=== PATIENT | male | born 1945 | race Hispanic/Latino ===

== ENCOUNTER 2017-11-16 14:33 | Inpatient (IN) | payer MEDICARE ==
[~2017-11-16] VITALS: Ht 157.5 cm; Wt 122.0 kg
[2017-11-16 15:30] LABS: BASOPHILS % 0.4 % (0.0-1.0); EOSINOPHILS % 0.7 % (0.0-6.0); HEMATOCRIT 27.6 % (38.2-49.6); HEMOGLOBIN 9.1 g/dL (14.0-18.0); LYMPHOCYTES # (AUTO) 0.6 (1.0-3.2); LYMPHOCYTES % 22.2 % (18.0-39.1); MEAN CORPUSCULAR VOLUME 97.2 fL (81-99); MONOCYTES # (AUTO) 0.2 (0.2-0.8); MONOCYTES % 8.7 % (4.4-11.3); NEUTROPHILS # (AUTO) 1.9 (2.1-6.9); NEUTROPHILS % 67.6 % (38.7-80.0); PLATELET COUNT 114 x10e3/uL (140-360); RED BLOOD COUNT 2.84 x10e6/uL (4.3-5.7); RED CELL DISTRIBUTION WIDTH 14.9 % (11.7-14.4)
[2017-11-16] MEDS ORDERED: ASPIRIN 81 MG CHEW TAB PO ONE ×2 (15:30→18:30)
[2017-11-16 15:37] LABS: INR 1.17
[2017-11-16 15:38] LABS: PARTIAL THROMBOPLASTIN TIME 26.4 seconds (23.8-35.5)
[2017-11-16 15:48] LABS: ALBUMIN 3.7 g/dL (3.5-5.0); ALBUMIN/GLOBULIN RATIO 1.2 (0.8-2.0); ANION GAP 16.6 mmol/L (8-16); CALCIUM 9.3 mg/dL (8.4-10.2); CREATININE, SERUM 2.83 mg/dL (0.72-1.25); POTASSIUM 3.6 mmol/L (3.5-5.1)
[2017-11-16 15:54] LABS: CREATINE KINASE MB 1.4 ng/mL (0-5.0)
--- NOTE | 2017-11-16 16:51 | Diagnostic Imaging Report ---
History:Shortness of breath, dizziness Comparison studies:None Technique: Axial images were obtained from the skull base to the vertex. Coronal and sagittal images reconstructed from the axial data. Intravenous contrast: None Findings: Scalp/skull: Previous suboccipital craniotomy perhaps to decompress a Chiari 1 malformation Extra-axial spaces: No masses. No fluid collections. Brain sulci: Mildly prominent. Ventricles: Mild compensatory dilatation. No hydrocephalus. Parenchyma: Old lacunar insults are centered in the left subinsular region. No masses, hemorrhage, acute or chronic cortical vascular insults. Sellar/suprasellar region: No abnormalities. Craniocervical junction: Patent foramen magnum. No Chiari one malformation. Incidental findings: * Atherosclerotic calcifications in the carotid siphons and vertebral arteries. * Left phthisis bulbi. Right lens prosthesis Impression: No acute abnormalities. Chronic findings: 1. Midline occipital craniectomy 2. Old lacunar insult in the left subinsular region. 3. Left sided phthisis bulbi with postoperative changes from scleral banding. Preliminary report provided by Dr. Jorje Cheema Signed by: Dr. Matt Kasper M.D. on 11/16/2017 8:22 PM
--- NOTE | 2017-11-16 16:58 | Diagnostic Imaging Report ---
PROCEDURE: A single AP view of the chest. COMPARISON: None. INDICATIONS: LEFT SIDE WEAKNESS, SHORTNESS OF BREATH FINDINGS: Lines/tubes: None. Lungs: Limited by body habitus and low lung volumes. No definite focal consolidation. Central vascular congestion. Right mid to lower lung field nodular density is probably a calcified granuloma. Pleura: There is no significant pleural effusion or pneumothorax. Heart and mediastinum: The cardiac silhouette is enlarged. Median sternotomy wires. Aorta is calcified. Bones: No acute bony abnormality. IMPRESSION: Limited as above. Central vascular congestion. No definite focal consolidation. Dictated by: Kishan Nevarez M.D. on 11/16/2017 at 17:01 Electronically approved by: Kishan Nevarez M.D. on 11/16/2017 at 17:01
[2017-11-16] MEDS ORDERED: MORPHINE SULFATE 2 MG/ML SYR IV PRN (18:30)
[2017-11-16] MEDS ORDERED: ONDANSETRON HCL INJ 2 MG/ML VIAL IV PRN (18:30)
[2017-11-16] MEDS ORDERED: ARICEPT5 MG PO (21:15)
[2017-11-16] MEDS ORDERED: CARVEDILOL12.5 MG PO (21:15)
[2017-11-16] MEDS ORDERED: BUMETANIDE1 MG PO (21:15)
[2017-11-16] MEDS ORDERED: HYDRALAZINE HCL25 MG PO (21:15)
[2017-11-16] MEDS ORDERED: METOPROLOL TART50 MG PO (21:15)
[2017-11-16] MEDS ORDERED: LOVASTATIN40 MG PO (21:15)
[2017-11-16] MEDS ORDERED: METOLAZONE5 MG PO (21:15)
[2017-11-16] MEDS ORDERED: LISINOPRIL10 MG PO (21:15)
[2017-11-16] MEDS ORDERED: SERTRALINE HCL100 MG PO (21:15)
[2017-11-16] MEDS ORDERED: PLAVIX75 MG PO (21:15)
[2017-11-16] MEDS ORDERED: TRICOR145 MG PO (21:15)
[2017-11-16] MEDS ORDERED: MELOXICAM7.5 MG PO (21:15)
[2017-11-16] MEDS ORDERED: HUMALOG100 UNIT/1 SC (21:15)
[2017-11-16] MEDS ORDERED: AMLODIPINE BESYL5 MG PO (21:15)
[2017-11-16] MEDS ORDERED: QUETIAPINE FUMARATE 100 MG TAB PO ONE (22:45)
[2017-11-16] MEDS ORDERED: SIMVASTATIN 20 MG TAB PO ONE (22:45)
[2017-11-16] MEDS ORDERED: DONEPEZIL HCL 5 MG TAB PO ONE (22:45)
[2017-11-16] MEDS ORDERED: METOPROLOL TARTRATE 50 MG TAB PO ONE (22:45)
[2017-11-16] MEDS ORDERED: HYDRALAZINE HCL 25 MG TAB PO ONE (22:45)
[2017-11-16] MEDS ORDERED: SERTRALINE HCL 100 MG TAB PO ONE (23:15)
[2017-11-16 23:28] VITALS: BP 142/65
[2017-11-17] VITALS (8 sets, daily range): BP systolic 120–159; BP diastolic 55–68
[2017-11-17 00:11] LABS: CREATINE KINASE MB 1.3 ng/mL (0-5.0)
[2017-11-17] MEDS ORDERED: TOUJEO SC (04:10)
[2017-11-17 07:35] LABS: BILIRUBIN,URINE NEGATIVE (NEGATIVE); CLARITY,URINE CLEAR (CLEAR); COLOR,URINE YELLOW (YELLOW); KETONES,URINE NEGATIVE (NEGATIVE); LEUKOCYTE ESTERASE ,URINE NEGATIVE (NEGATIVE); NITRITE,URINE NEGATIVE (NEGATIVE); PROTEIN,URINE DIPSTICK NEGATIVE (NEGATIVE); URINE UROBILINOGEN 0.2 mg/dL (0.2 - 1)
[2017-11-17 08:06] LABS: EPITHELIAL CELLS,URINE RARE /LPF
[2017-11-17 08:13] LABS: BASOPHILS % 0.4 % (0.0-1.0); EOSINOPHILS % 0.8 % (0.0-6.0); HEMATOCRIT 27.7 % (38.2-49.6); HEMOGLOBIN 8.9 g/dL (14.0-18.0); LYMPHOCYTES # (AUTO) 0.8 (1.0-3.2); LYMPHOCYTES % 34.4 % (18.0-39.1); MEAN CORPUSCULAR HEMOGLOBIN 31.6 pg (28-32); MEAN CORPUSCULAR HGB CONC 32.1 g/dL (31-35); MEAN CORPUSCULAR VOLUME 98.2 fL (81-99); MONOCYTES # (AUTO) 0.3 (0.2-0.8); MONOCYTES % 13.1 % (4.4-11.3); NEUTROPHILS # (AUTO) 1.2 (2.1-6.9); NEUTROPHILS % 50.1 % (38.7-80.0); PLATELET COUNT 127 x10e3/uL (140-360); RED BLOOD COUNT 2.82 x10e6/uL (4.3-5.7); RED CELL DISTRIBUTION WIDTH 14.8 % (11.7-14.4)
[2017-11-17 08:29] LABS: ALBUMIN 3.5 g/dL (3.5-5.0); ALBUMIN/GLOBULIN RATIO 1.3 (0.8-2.0); ANION GAP 16.6 mmol/L (8-16); CALCIUM 9.1 mg/dL (8.4-10.2); CREATININE, SERUM 2.33 mg/dL (0.72-1.25); POTASSIUM 3.6 mmol/L (3.5-5.1)
[2017-11-17] MEDS ORDERED: DEXTROSE 50% SYRINGE 50 ML IV PRN (08:30)
[2017-11-17] MEDS ORDERED: ASPIRIN 81 MG ENTERIC COATED PO SCH (09:00)
[2017-11-17] MEDS: HYDRALAZINE HCL 25 MG TAB PO SCH ×3 (09:02→20:59)
[2017-11-17] MEDS: CARVEDILOL 12.5 MG TAB PO SCH ×2 (09:02→16:15)
[2017-11-17] MEDS: AMLODIPINE BESYLATE 5 MG TAB PO SCH ×2 (09:03→16:15)
[2017-11-17] MEDS: FENOFIBRATE 145 MG TAB PO SCH (09:03)
[2017-11-17] MEDS: SERTRALINE HCL 100 MG TAB PO SCH ×2 (09:03→16:15)
[2017-11-17] MEDS: CLOPIDOGREL BISULFATE 75 MG TAB PO SCH (09:03)
[2017-11-17] MEDS: HEPARIN SOD (PORCINE) 5,000 UNIT/ML VIAL SC SCH ×2 (09:03→20:59)
--- NOTE | 2017-11-17 09:20 | History and Physical ---
PCP: Dr. Bhupendra Loera CHIEF COMPLAINT: The patient is having increasing shortness of breath for the last few days associated with confusion and episode of left side of face drooping about 2-3 days back. HISTORY OF PRESENT ILLNESS: The patient is a poor historian. History with the help of daughter on phone. A 72-year-old pleasant male with a past medical history of multiple medical problems was admitted at [facility] with the above complaints. As per daughter, since last few days to a couple of weeks the patient is complaining of more short of breath than normal. Also, the patient was more confused. As per daughter, about 2-3 days back there was an episode of what felt like left side of his face was drooping for some time. Hence, due to all of this, the patient was brought in the ER last evening. In the emergency room, the patient was seen by the emergency room doctor, and was admitted for further care and treatment. At present, the patient laying comfortably in bed in no apparent distress. No chest pain. No nausea or diarrhea. No abdominal pain. No loss of consciousness or palpitations. No headaches. No hematemesis. No melena. No hematuria. No dysuria. No fever. No cough. No witnessed seizures. PAST MEDICAL HISTORY 1. CAD, status post CABG 20 years back. 2. Diabetes mellitus, type 2, insulin-dependent. 3. CHF. 4. Chronic renal insufficiency. 5. Morbid obesity. 6. Hypertension. 7. Dyslipidemia. 8. Left eye blindness. 9. Dementia. MEDICATIONS: As listed in chart. SURGICAL HISTORY: CABG 20 years back, C-spine surgery 7-8 years back, left eye surgery 6 years back. SOCIAL HISTORY: Ex-smoker. No alcohol. No illicit drug use. Lives with daughter. recently 1 week back. FAMILY HISTORY: Noncontributory. REVIEW OF SYSTEMS: As per HPI. PHYSICAL EXAMINATION GENERAL: The patient is alert and oriented times 3 and in no apparent distress. Lying in bed. VITALS: Temperature is 97, pulse 70 per minute, respirations 20 per minute, blood pressure 159/70, and saturation is 97% on room air. HEENT: No signs of icterus. No pallor. Normocephalic and atraumatic. PERRLA. NECK: Short and supple. No JVD or bruits. LUNGS: Air entry bilaterally equal. Bibasilar breath sounds. HEART: S1 and S2. No murmur or gallop. ABDOMEN: Soft and nontender. Bowel sounds present. SUPERVISOR MIRROR FABRICATION: Alert, awake and obeys all commands. Moves extremities. LABS: On admission, white count 2.7, hemoglobin 9, hematocrit 27.6, and platelets 114,000. Sodium 138, potassium 3.6, chloride 96, bicarb 29, BUN 59, creatinine 2.83, glucose 195. LFTs within normal limits. Cardiac enzymes times 3 negative. PT 49, INR 1.17 and PTT 26.4. Urine with no infection. Chest x-ray shows central venous congestion. No definite focal consolidation. CT of brain shows midline occipital craniectomy. Old lacunar insult in the left subinsular region. Left-sided followed by report of scleral banding. EKG shows sinus rhythm with first-degree AV block. ST-T changes in the inferolateral leads. ASSESSMENT 1. Dyspnea. 2. Episode of confusion, left-sided facial droop. Dyspnea could be CHF exacerbation. Will check BMP, echo. Cardiology consultation with Dr. Skelton. Will get carotid Dopplers. Neurology consultation with Dr. Heather Reeves. Renal consultation with Dr. Sagastume. Serial lytes. Continue home medications. Hold lisinopril. Hold meloxicam. Further care and treatment while the patient is in the hospital. Discussed with the patient and daughter in detail. Prognosis is guarded. Job#: [id number] [place]
[2017-11-17] MEDS: INSULIN LISPRO 100 UNIT/1 ML 3ML VIAL SQ SCH ×3 (11:32→21:01)
[2017-11-17 14:57] LABS: CREATINE KINASE MB 1.1 ng/mL (0-5.0)
[2017-11-17 15:24] LABS: CREATININE,URINE RANDOM 118.4 mg/dL (63-166); TOTAL PROTEIN, URINE 17.1 mg/dL (1-14)
--- NOTE | 2017-11-17 15:42 | Diagnostic Imaging Report ---
EXAM: Renal Ultrasound INDICATION: \S\RENAL FAILURE \[id number] \S\[id number] COMPARISON: None TECHNIQUE: Transverse and longitudinal images of the kidneys and bladder were obtained. FINDINGS: Right Kidney: Size: 10.9 cm Echogenicity: Normal Parenchymal thickness: Normal Collecting system: No hydronephrosis Stones: None Cyst/Mass: 1.9 x 1.4 x 1.5 cm inferior medial right renal cyst. Left Kidney: Size: 11.6 cm Echogenicity: Normal Parenchymal thickness: Normal Collecting system: No hydronephrosis Stones: None Cyst/Mass: None Bladder: Unremarkable. IMPRESSION: Unremarkable renal ultrasound exam. Signed by: Dr. Kishan Nevarez MD on 11/17/2017 3:38 PM
--- NOTE | 2017-11-17 15:43 | Consultation ---
DATE OF CONSULTATION: November 17, 2017 A 72-year-old gentleman who is a very poor historian. Renal consult for management of kidney failure. Patient was admitted with apparent shortness of breath. He denies any nausea, vomiting or shortness of breath at this point in time and laying supine in bed. Again, a very poor historian. Follows commands to some extent. States he does not know why he is here in the hospital. Has underlying history of dementia, left eye surgery, history of increased BMI, congestive heart failure, CKD, diabetes, coronary artery disease with apparently a history of C-spine surgery and possible craniotomy. He had coronary artery bypass surgery many years ago. SOCIAL HISTORY: Does not smoke or drink. FAMILY HISTORY: Please see primary care physician's note for details. LABORATORY TESTS: Sodium 139, potassium 3.6, bicarbonate 28, creatinine 2.33. Hemoglobin 8.9. AST 17, ALT 11, total bilirubin 0.4. He is currently on aspirin, carvedilol, fenofibrate, insulin, Plavix, hydralazine, amlodipine, dextrose p.r.n., sertraline 100 mg p.o. b.i.d., 10 mg at bedtime and insulin. For dose schedule, please see MAR. PHYSICAL EXAMINATION GENERAL: Awake, alert and laying supine. No apparent distress. VITALS: Blood pressure 135/63, pulse rate 80, afebrile, oxygen saturation 95% on room air. HEAD AND NECK: No icterus noted. Oral mucosa difficult to examine but moist. Neck veins not distended. LUNGS: Decreased air entry in bases, but no rales. HEART: S1 and S2 audible. ABDOMEN: Obese, soft and nontender. Flanks full. LOWER EXTREMITY: Trace ankle edema. IMPRESSION AND PLAN 1. Underlying [id number] kidney failure. 2. Underlying chronic kidney disease, 3. 3. Diabetes with underlying multiple comorbidities: Will obtain kidney ultrasound. Spot urine protein and creatinine ratio. No overt sign of congestive heart failure. 4. Anemia of chronic kidney disease. Blood pressure appears stable. Echocardiogram done and results pending. Seen by neurology. Job#: [id number] [place]
[2017-11-17 16:31] LABS: CHOL/HDL RATIO 5.2 (3.9-4.7); CHOLESTEROL 162 MD/DL (0-199); HDL CHOLESTEROL 31 MG/DL (40-60); TRIGLYCERIDES 403 MG/DL (0-149)
--- NOTE | 2017-11-17 16:48 | Consultation ---
DATE OF CONSULTATION: November 17, 2017 CARDIOLOGY CONSULTATION REQUESTING PHYSICIAN: Dr. Haim Callaway. REASON FOR CONSULTATION: Chest pain. HISTORY OF PRESENT ILLNESS: This is a 72-year-old man with coronary artery disease status post 4-vessel CABG 20 years ago, congestive heart failure, diabetes mellitus, hypertension, hyperlipidemia, and chronic kidney disease, who presented with complaints of shortness of breath. The patient is a poor historian. He states he has chronic shortness of breath but he has apparently been more short of breath in the last few weeks. Per EMR, the daughter indicated the patient was more confused as well as had development of a left-sided facial droop 2 to 3 days prior to presentation. The patient was therefore brought to the ER for further evaluation. The patient denies any chest pain, palpitations, orthopnea or PND. He does endorse chronic lower extremity edema that has been ongoing for several months. REVIEW OF SYSTEMS: Negative except as per HPI. PAST MEDICAL HISTORY 1. Coronary artery disease, status post 4-vessel CABG 20 years ago. 2. Congestive heart failure. 3. Diabetes mellitus. 4. Hypertension. 5. Hyperlipidemia. 6. Chronic kidney disease. 7. Left eye blindness. 8. Dementia. PAST SURGICAL HISTORY 1. CABG. 2. C-spine surgery. 3. Left eye surgery. ALLERGIES: PLEASE SEE EMR. MEDICATIONS: Please see medication list. SOCIAL HISTORY: Prior tobacco, no alcohol or drugs. FAMILY HISTORY: Noncontributory. PHYSICAL EXAMINATION VITAL SIGNS: Temperature 96.5 degrees, pulse 80, respiratory rate 18, blood pressure 135/63, oxygen saturation 95% on room air. GENERAL: A well developed, well-nourished man in no acute distress. HEENT: Normocephalic, atraumatic. Left eye blind. NECK: Supple. No thyromegaly or cervical lymphadenopathy, no carotid bruits. LUNGS: Clear to auscultation bilaterally. No wheezes or crackles. CARDIOVASCULAR: Normal rate, regular rhythm. No murmur. Normal S1 and S2. ABDOMEN: Soft, nontender. EXTREMITIES: 1+ pitting edema. NEURO: Nonfocal exam. LABS: WBC 2.44, hemoglobin 8.9, hematocrit 27.7, platelets 127. Sodium 139, potassium 3.6, chloride 98, CO2 28, BUN 61, creatinine 2.33. Troponin 0.018. EKG: Sinus rhythm with 1st-degree AV block, ST-T wave abnormality, consider inferior ischemia. ST-T wave abnormality, consider anterolateral ischemia. CHEST X-RAY: Central vascular congestion. No definite focal consolidation. CT BRAIN: Mild occipital craniectomy, old lacunar insult in the left subinsular region, left-sided phthisis bulbi with postoperative changes from scleral banding. CAROTID DOPPLERS: With elevated velocities in the right internal carotid which are suggestive of 50% to 69% focal stenosis. IMPRESSION 1. Dyspnea, suspect [id number] diastolic heart failure. 2. Left-sided facial droop. 3. Carotid artery stenosis. 4. Coronary artery disease, status post 4-vessel coronary artery bypass graft. 5. Hypertension. 6. Diabetes mellitus. 7. Chronic kidney disease. RECOMMENDATIONS: Gentle diuretics given patient's elevated creatinine. Unclear if this is his baseline. The patient is a poor historian. He indicates it has been several years since he has last had cardiac care. We will confirm with the family. If he has not had recent ischemic evaluation, he will need to have this arranged as an outpatient. Continue current cardiac medications otherwise. Further evaluation of left-sided facial weakness per Neurology. If acute CVA is confirmed, we will need to allow permissive hypertension. Therefore, would not adjust his antihypertensive therapies at this time. Thank you for this consult. We will continue to follow. Job#: [id number] [place]
[2017-11-17] MEDS: FUROSEMIDE INJ 10 MG/ML 4 ML VIAL IV SCH (16:52)
[2017-11-17] MEDS: FAMOTIDINE 20 MG TAB PO SCH (16:53)
--- NOTE | 2017-11-17 17:33 | Consultation ---
DATE OF CONSULTATION: November 17, 2017 NEUROLOGY CONSULT HISTORY OF PRESENT ILLNESS: Mr. Mcclendon is a 72-year-old right-hand dominant man with a past medical history significant for hypertension, hyperlipidemia, diabetes mellitus, coronary artery disease, and peripheral vascular disease, who presented to the emergency center at [facility] on the evening of November 17, 2017, with multiple symptoms. Mr. Mcclendon reports not feeling well for the past few weeks. He reports fatigue, generalized weakness, rhinorrhea, and a productive cough. Two days prior to admission, the patient experienced the sudden onset of dysarthria, expressive aphasia, and a left facial droop. The patient reports generalized weakness without one side being more affected than the other. He does not endorse numbness, dizziness, or confusion. He does report poor balance and gait impairment, which he attributed to his generalized weakness. The slurred speech, expressive aphasia, and left facial droop lasted for a few hours, then spontaneously resolved. On the day of admission, the patient developed chest pain and shortness of breath, prompting his family to bring him to the emergency center at [facility] for further evaluation. Upon admission to the emergency center, the patient was afebrile with a blood pressure of 114/70 mmHg and pulse of 69 beats per minute. The patient's neurological examination is documented as follows: Oriented times 3. No motor deficits. No sensory deficits. While in the emergency center, a CT of the brain without contrast was performed. There was no evidence of recent large territorial ischemia or hemorrhage. Mr. Mcclendon was admitted to [facility] for further evaluation and treatment of his symptoms. Patient reports experiencing similar symptoms previously, "off and on." He reports having a mild headache associated with the above symptoms. He does not endorse photophobia, phonophobia, nausea, or vomiting associated with the headache. Mr. Mcclendon takes Plavix 75 mg by mouth daily. He endorses compliance with his medication list. REVIEW OF SYSTEMS: Chest pain, shortness of breath, productive cough, nasal congestion, dysarthria, aphasia, left facial droop, generalized weakness, headache, fatigue. Otherwise, a 12-point review of systems is negative. PAST MEDICAL HISTORY: Hypertension, hyperlipidemia, diabetes mellitus, coronary artery disease, asthma, emphysema, chronic kidney disease, stage unknown, peripheral vascular disease. PAST SURGICAL HISTORY: Four-vessel CABG, cervical spine surgery, double inguinal hernia repair, stents placement in peripheral blood vessels. PAST HOSPITALIZATIONS: Surgeries and procedures as listed. FAMILY HISTORY: The patient's paternal and maternal grandparents are . Their medical histories are unknown. The patient's father and mother are both from complications of diabetes. Mr. Mcclendon had 4 brothers and 5 sisters. His youngest brother and eldest and youngest sisters are alive. One brother and 1 sister were killed in a motor vehicle accidents. One sister from an unknown cancer. One brother from liver disease secondary to alcohol abuse. The patient had 5 sons and 3 daughters. Two sons and 3 daughters are alive. One son in infancy. One son as a result of a motor vehicle accident. One son from complications of diabetes mellitus and end-stage renal disease. SOCIAL HISTORY: Mr. Mcclendon is a . He is retired. The patient reports remote tobacco and alcohol use. He quit smoking cigarettes and drinking alcohol approximately 35 years ago. Mr. Mcclendon does not endorse current or prior recreational drug use. HOME MEDICATIONS: 1. Norvasc 5 mg by mouth twice daily. 2. Bumetanide 1 mg by mouth twice daily. 3. Coreg 25 mg by mouth daily. 4. Plavix 75 mg by mouth daily. 5. Aricept 10 mg by mouth at bedtime daily. 6. TriCor 145 mg by mouth daily. 7. Hydralazine 25 mg by mouth three times daily. 8. Humalog 5 units subcutaneously before meals. 9. Lisinopril 20 mg by mouth twice daily. 10. Lovastatin 40 mg by mouth at bedtime daily. 11. Meloxicam 7.5 mg by mouth daily. 12. Metolazone 5 mg by mouth twice daily. 13. Metoprolol 50 mg by mouth twice daily. 14. Sertraline 100 mg by mouth twice daily. 15. Toujeo 40 units subcutaneously at bedtime daily. ALLERGIES: MR. MCCLENDON REPORTS NO KNOWN DRUG ALLERGIES. HOWEVER, AN ALLERGY TO ACETAMINOPHEN IS LISTED IN HIS ELECTRONIC MEDICAL RECORD. NO KNOWN FOOD ALLERGIES. NO KNOWN ALLERGIES TO LATEX. NO KNOWN ALLERGIES TO IODINE OR OTHER CONTRAST MATERIALS. PHYSICAL EXAMINATION VITAL SIGNS: Height 67 inches, weight 270 pounds, BMI 42.3 kg per meter squared. Blood pressure 135/63 mmHg, pulse 80 beats per minute, respiratory rate 18 breaths per minute, oxygen saturation 95% on room air. GENERAL: Patient is awake and alert, does not appear distressed. Morbidly obese. HEENT: Normocephalic and atraumatic. The left pupil is opacified. The right pupil is equal, round and reactive to light. Moist mucous membranes. NECK: Supple. No appreciable thyromegaly. No appreciable carotid bruits. CARDIOVASCULAR: S1 and S2. Regular rate and rhythm. No murmurs, rubs or gallops. RESPIRATORY: Clear to auscultation bilaterally. No wheezes, rhonchi, or rales. EXTREMITIES: The skin is warm and dry. No clubbing, or cyanosis. Positive 1+ pretibial pitting edema. The posterior tibial and dorsalis pedis pulses are trace and symmetric. SKIN: Ecchymoses over the hands and forearms. NEUROLOGIC MEMORY/ATTENTION: The patient is awake and alert, oriented to person, place, time, and situation. CRANIAL NERVES: Cranial nerve I: Not tested. Cranial nerve II, III, IV, and : The left pupil is opacified. The right pupil is equal and round. Reacts briskly to light (from 4 mm to 2 mm). Extraocular movements intact. No nystagmus. Ptosis of the left eye lid. Cranial nerve V: Sensation to light touch and pinprick is intact in the bilateral V1 through V3 distributions. Strength of the temporalis and masseter muscles is within normal limits. Cranial nerve VII: Some flattening of the left nasal labial fold. Facial movements are symmetric. Strength is within normal limits. Cranial nerve VIII: Hearing is intact to finger rub bilaterally. Cranial nerve IX, X: The soft palate elevates equally and symmetrically. Cranial nerve XI: Normal strength of the bilateral sternocleidomastoid and trapezius muscles. Cranial nerve XII: The tongue protrudes midline and moves symmetrically from side to side. STRENGTH: Bulk is normal. The patient maintains both arms against gravity for more than 10 seconds each without drift. The patient maintains both legs against gravity for more than 5 seconds each without drift. Tone is normal. DEEP TENDON REFLEXES: Deep tendon reflexes are 1+ and symmetric at the triceps, biceps, brachioradialis, and patellas. Deep tendon reflexes are absent and symmetric at the Achilles. Plantar responses are flexor bilaterally. SENSATION: Is intact to light touch and pinprick in both arms and both legs. CEREBELLAR: Ziuzgc-vxag-ufdteq and heel-gonzalez movements are intact without dysmetria or other impairment. GAIT: Deferred. SPEECH: Spontaneous speech is mildly dysarthric without appreciable aphasia. Repetition is intact. INVOLUNTARY MOVEMENTS: None. PRONATOR DRIFT: None. LABORATORY DATA: Sodium 139, potassium 3.6, chloride 98, carbon dioxide 28, anion gap 16.6, BUN 61, creatinine 2.33. Estimated GFR 28. BUN to creatinine ratio 26. Glucose 170. Calcium 9.1. Total bilirubin 0.4, AST 17, ALT 11, alkaline phosphatase 40, total protein 6.2, albumin 3.5, globulin 2.7. Albumin to globulin ratio is 1.3. Creatinine kinase is 88, 74, 76, 85. CK-MB 1.4, 1.3, 1, 1.1. Troponin I 0.036, 0.024, 0.024, 0.18. B-natriuretic peptide 184.9. CBC with differential and platelets reveals a white blood cell count of 2.44 with 50.1% neutrophils, 34.4% lymphocytes, 13.1% monocytes, 0.8% eosinophils, and 0.4% basophils. The hemoglobin and hematocrit are 8.9 and 27.7 respectively. The platelet count is 127,000. PT 14, INR 1.17 and PTT 26.4. A urinalysis is unremarkable. DIAGNOSTIC STUDIES: Chest x-ray on November 16, 2017, limited by body habitus and low lung volumes. Central vascular congestion. No definite focal consolidation. CT of the brain without contrast on November 16, 2017, on my review, there is no evidence of recent large territorial ischemia, hemorrhage, mass, or mass effect. There is evidence of a prior midline occipital craniectomy. There is a remote lacunar infarct in the left subinsular region. Electrocardiogram on November 16, 2017, sinus rhythm with 1st-degree AV block at 69 beats per minute. Echocardiogram on November 17, 2017, ejection fraction 50% to 55%. Concentric left ventricular hypertrophy. Left ventricular enlargement. Left atrial enlargement. Mild mitral regurgitation. Bilateral carotid artery ultrasound with Doppler: Atherosclerosis without hemodynamically significant stenosis at the bilateral bulbs, bifurcations, internal carotid arteries, and external carotid arteries. Renal ultrasound on November 17, 2017, unremarkable renal ultrasound exam. ASSESSMENT AND PLAN: Mr. Mcclendon is a 72-year-old right-hand dominant man with multiple vascular risk factors admitted to [facility] with a probable transient ischemic attack in the right middle cerebral artery distribution. At present, the patient's neurological examination is nonfocal. His laboratory data and other diagnostic studies have been reviewed and are documented above. RECOMMENDATIONS 1. Lipid panel and hemoglobin A1c. 2. MRI of the brain without contrast is recommended for further evaluation. However, this study is declined by the patient. 3. Continue Plavix 75 mg by mouth daily for stroke prophylaxis. Discontinue aspirin therapy. Dual antiplatelets place the patient at a higher risk for bleeding events. 4. Normalize blood pressure. The patient's blood pressure goal is less than 140/90 mmHg. 5. Follow up the lipid panel. Continue treatment with lovastatin 40 mg by mouth at bedtime daily in the interim. 6. Followup the hemoglobin A1c. Tight glycemic control is recommended while the patient is in the hospital. 7. Speech and physical therapy consultations will be ordered. 8. GI prophylaxis with Pepcid 20 mg by mouth twice daily before meals. DVT prophylaxis with heparin 5000 units subcutaneously every 12 hours as per the primary service. 9. Defer treatment of the remaining medical comorbidities to the primary and other services following the patient. Thank you for this consultation. I will continue to follow this patient while he remains in the hospital. Time spent 50 minutes. Job#: [id number] [place] WALKER
[2017-11-17] MEDS: DONEPEZIL HCL 5 MG TAB PO SCH (20:59)
[2017-11-17] MEDS: SIMVASTATIN 40 MG TAB PO SCH (20:59)
[2017-11-17] MEDS ORDERED: INSULIN DETEMIR 100 UNIT/ML PEN SQ SCH (21:00)
[2017-11-18] VITALS (7 sets, daily range): BP systolic 122–147; BP diastolic 58–68
[2017-11-18 06:58] LABS: ALBUMIN 3.9 g/dL (3.5-5.0); ALBUMIN/GLOBULIN RATIO 1.3 (0.8-2.0); ANION GAP 15.8 mmol/L (8-16); CALCIUM 9.5 mg/dL (8.4-10.2); CREATININE, SERUM 2.05 mg/dL (0.72-1.25); POTASSIUM 3.8 mmol/L (3.5-5.1)
[2017-11-18] MEDS: AMLODIPINE BESYLATE 5 MG TAB PO SCH ×2 (08:22→16:28)
[2017-11-18] MEDS: HEPARIN SOD (PORCINE) 5,000 UNIT/ML VIAL SC SCH ×2 (08:22→21:26)
[2017-11-18] MEDS: CARVEDILOL 12.5 MG TAB PO SCH ×2 (08:22→16:28)
[2017-11-18] MEDS: CLOPIDOGREL BISULFATE 75 MG TAB PO SCH (08:22)
[2017-11-18] MEDS: HYDRALAZINE HCL 25 MG TAB PO SCH ×3 (08:22→21:00)
[2017-11-18] MEDS: SERTRALINE HCL 100 MG TAB PO SCH ×2 (08:22→16:28)
[2017-11-18] MEDS: FUROSEMIDE INJ 10 MG/ML 4 ML VIAL IV SCH (08:22)
[2017-11-18] MEDS: FENOFIBRATE 145 MG TAB PO SCH (08:22)
[2017-11-18] MEDS: FAMOTIDINE 20 MG TAB PO SCH ×2 (08:22→16:27)
[2017-11-18] MEDS: INSULIN LISPRO 100 UNIT/1 ML 3ML VIAL SQ SCH ×5 (08:23→21:10)
[2017-11-18] MEDS ORDERED: FUROSEMIDE INJ 10 MG/ML 2 ML VIAL IV SCH (09:00)
--- NOTE | 2017-11-18 12:13 | Progress Note ---
DATE: November 18, 2017 CARDIOLOGY PROGRESS NOTE SUBJECTIVE: Patient denies chest pain. He reports his shortness of breath is better. His daughter was at bedside today who was able to state that the patient's outpatient grape cutter is Dr. David, who he last saw approximately 1 year prior. OBJECTIVE VITAL SIGNS: Temperature 97.7 degrees, pulse 79, respiratory rate 19, blood pressure 136/62, oxygen saturation 96% on room air. GENERAL: Awake, alert, in no acute distress. LUNGS: Clear to auscultation bilaterally. No wheezes or crackles. CARDIOVASCULAR: Normal rate, regular rhythm. No murmur. Normal S1 and S2. ABDOMEN: Soft, nontender. EXTREMITIES: There is 1+ pitting edema. CARDIAC MEDICATIONS 1. Furosemide 40 mg IV daily. 2. Hydralazine 25 mg p.o. t.i.d. 3. Fenofibrate 145 mg p.o. daily. 4. Plavix 75 mg p.o. daily. 5. Carvedilol 12.5 mg p.o. b.i.d. 6. Amlodipine 5 mg p.o. b.i.d. 7. Simvastatin 40 mg p.o. nightly. TELEMETRY: Normal sinus rhythm. IMPRESSION 1. Sgxfv-du-dhduujf diastolic heart failure. 2. Transient ischemic attack. 3. Carotid artery stenosis. 4. Coronary artery disease, status post 4-vessel coronary artery bypass graft. 5. Hypertension. 6. Diabetes mellitus. 7. Chronic kidney disease. RECOMMENDATIONS: Start gentle diuretics given the patient's complaint of dyspnea and elevated BNP. The patient's daughter indicates his last stress test was approximately 1 year ago. As the patient's grape cutter is Dr. David, we will transfer care to him. In the meantime, continue current cardiac medications. The patient's blood pressure is acceptable for age. We will make no changes at this time. Patient does need evaluation of his carotid artery disease. However, we are currently limited by his renal function. We will monitor creatinine. Thank you for this consult. We will continue to follow. Job#: [id number]
--- NOTE | 2017-11-18 14:35 | Consultation ---
DATE OF CONSULTATION: November 18, 2017 ENDOCRINE CONSULTATION This is a patient of Dr. Callaway. Thank you very much for referring this patient. This is a 72-year-old gentleman who is referred to me for evaluation of uncontrolled diabetes mellitus. Patient is a known diabetic for almost 40 years and has multiple complications related to diabetes including severe diabetic sensorimotor neuropathy, diabetic nephropathy. He takes a combination of Toujeo insulin 40 at bedtime and Humalog 5 units with each meal. This time he came to the hospital because of shortness of breath and some weakness of the left upper and lower extremities with some facial drooping. Patient also has history of coronary artery disease status post CABG done about 20 years back. He has history of congestive cardiac failure, hyperlipidemia, he is blind on the left eye. He also has history of mild dementia. Patient is on multiple medications at home including medications for blood pressure and hyperlipidemia. His blood sugars during the hospital stay at the time of admission had been 200 to 300 range. His hemoglobin A1c significantly elevated at 9.7. His other medications include Plavix, hydralazine, Zoloft 100 mg once daily, simvastatin and fenofibrate. PHYSICAL EXAMINATION GENERAL: The patient is alert, awake, a little bit apprehensive. He is moderately overweight. VITAL SIGNS: His heart rate is around 78. Blood pressure 140/80 mmHg. HEENT: Examination essentially unremarkable. Thyroid is palpable. Clinically he is euthyroid. CHEST: Bilateral vesicular breathing. He has mild bronchospasm. Cardiac 1st and 2nd heart sounds. There is no 3rd or 4th heart sound. Ejection systolic murmur, grade 2/6. EXTREMITIES: Patient has evidence of diabetic sensory neuropathy in both lower extremities. CLINICAL IMPRESSION 1. Diabetes mellitus type 2 uncontrolled with complications. 2. End-stage renal failure. 3. Hypertension. 4. Hyperlipidemia. 5. Coronary artery disease status post coronary artery bypass graft. 6. Congestive cardiac failure. Rule out cerebrovascular accident with left-sided weakness. The plan at this time is to monitor his blood sugars closely. Do a hemoglobin A1c, thyroid function test and also increase his Humalog with each meal depending upon the blood sugars. Thanks for referring this patient. I will be following this patient with you. Job#: [id number] LUPE
[2017-11-18] MEDS ORDERED: INSULIN DETEMIR 100 UNIT/ML PEN SQ SCH (21:00)
[2017-11-18] MEDS: SIMVASTATIN 40 MG TAB PO SCH (21:25)
[2017-11-18] MEDS: DONEPEZIL HCL 5 MG TAB PO SCH (21:25)
[2017-11-19] VITALS (7 sets, daily range): BP systolic 135–162; BP diastolic 59–95
[2017-11-19 06:20] LABS: EOSINOPHILS % 1.6 % (0.0-6.0); HEMATOCRIT 27.3 % (38.2-49.6); HEMOGLOBIN 9.1 g/dL (14.0-18.0); LYMPHOCYTES # (AUTO) 0.8 (1.0-3.2); LYMPHOCYTES % 43.5 % (18.0-39.1); MEAN CORPUSCULAR HEMOGLOBIN 32.3 pg (28-32); MEAN CORPUSCULAR HGB CONC 33.3 g/dL (31-35); MEAN CORPUSCULAR VOLUME 96.8 fL (81-99); MONOCYTES # (AUTO) 0.2 (0.2-0.8); MONOCYTES % 12.4 % (4.4-11.3); NEUTROPHILS # (AUTO) 0.8 (2.1-6.9); NEUTROPHILS % 40.5 % (38.7-80.0); PLATELET COUNT 147 x10e3/uL (140-360); RED BLOOD COUNT 2.82 x10e6/uL (4.3-5.7); RED CELL DISTRIBUTION WIDTH 14.7 % (11.7-14.4)
[2017-11-19 06:37] LABS: ALBUMIN 3.7 g/dL (3.5-5.0); ALBUMIN/GLOBULIN RATIO 1.3 (0.8-2.0); CALCIUM 9.3 mg/dL (8.4-10.2); CREATININE, SERUM 1.91 mg/dL (0.72-1.25)
[2017-11-19 07:21] LABS: BAND NEUTROPHILS % (MANUAL) 2 %; EOSINOPHILS % (MANUAL) 1 % (0-7); LYMPHOCYTES % (MANUAL) 38 % (19-48); MONOCYTES % (MANUAL) 9 % (3.4-9.0); NEUTROPHILS % (MANUAL) 50 % (40-74); PLATELET ESTIMATE ADEQUATE; PLATELET MORPHOLOGY COMMENT NORMAL; RBC MORPHOLOGY COMMENT NORMAL
[2017-11-19 08:04] LABS: BASOPHILS % 0.6 % (0.0-1.0); EOSINOPHILS % 1.7 % (0.0-6.0); HEMATOCRIT 28.9 % (38.2-49.6); HEMOGLOBIN 9.4 g/dL (14.0-18.0); LYMPHOCYTES # (AUTO) 0.7 (1.0-3.2); LYMPHOCYTES % 39.2 % (18.0-39.1); MEAN CORPUSCULAR HEMOGLOBIN 31.9 pg (28-32); MEAN CORPUSCULAR HGB CONC 32.5 g/dL (31-35); MONOCYTES # (AUTO) 0.2 (0.2-0.8); MONOCYTES % 12.7 % (4.4-11.3); NEUTROPHILS # (AUTO) 0.8 (2.1-6.9); NEUTROPHILS % 44.7 % (38.7-80.0); PLATELET COUNT 147 x10e3/uL (140-360); RED BLOOD COUNT 2.95 x10e6/uL (4.3-5.7); RED CELL DISTRIBUTION WIDTH 14.7 % (11.7-14.4)
[2017-11-19] MEDS: AMLODIPINE BESYLATE 5 MG TAB PO SCH ×2 (08:08→16:46)
[2017-11-19] MEDS: CARVEDILOL 12.5 MG TAB PO SCH ×2 (08:08→16:46)
[2017-11-19] MEDS: CLOPIDOGREL BISULFATE 75 MG TAB PO SCH (08:08)
[2017-11-19] MEDS: FENOFIBRATE 145 MG TAB PO SCH (08:08)
[2017-11-19] MEDS: HYDRALAZINE HCL 25 MG TAB PO SCH ×3 (08:08→21:00)
[2017-11-19] MEDS: FUROSEMIDE INJ 10 MG/ML 4 ML VIAL IV SCH (08:08)
[2017-11-19] MEDS: FAMOTIDINE 20 MG TAB PO SCH ×2 (08:08→16:46)
[2017-11-19] MEDS: SERTRALINE HCL 100 MG TAB PO SCH ×2 (08:08→16:46)
[2017-11-19] MEDS: HEPARIN SOD (PORCINE) 5,000 UNIT/ML VIAL SC SCH ×2 (08:12→21:48)
[2017-11-19] MEDS: INSULIN LISPRO 100 UNIT/1 ML 3ML VIAL SQ SCH ×7 (08:13→20:30)
--- NOTE | 2017-11-19 08:17 | Consultation ---
DATE OF CONSULTATION: November 18, 2017 CARDIOLOGY CONSULTATION REASON FOR CONSULTATION: Cardiac patient. CONSULTING PHYSICIAN: Dr. Bonnie Mckoy HPI: This is a pleasant 72-year-old male that presented with shortness of breath on the November 16, 2017. He started having shortness of breath off and on for the last 1 week. He also complained of left-sided facial drooping, and he presented to the emergency room for evaluation. He was being seen by Dr. Bonnie Mckoy, and the patient's family saw us and decided to switch the consult because Dr. David has been his tax examining technician. He had multiple medical problems, including CHF, CAD, and obesity. He had a BNP done that showed 184. CT of the brain showed midline occipital craniotomy, old lacunar insult. He denied any chest pain, any palpitation, any dizziness, or diaphoresis. Troponin was negative times 3. EKG showed normal sinus rhythm with no S/T abnormalities. PAST MEDICAL HISTORY: Diabetes, hypertension, hyperlipidemia, CAD, CHF, obesity, left eye blindness, dementia, CKD, CVA, anemia. PAST SURGICAL HISTORY: C-spine surgery, left eye surgery and open heart surgery 20 years ago. FAMILY HISTORY: The patient lives at home with family. No smoking. No drinking. MEDICATIONS: See med list. ALLERGIES: HE IS ALLERGIC TO TYLENOL. REVIEW OF SYSTEMS: Negative except as mentioned above. He is positive with shortness of breath. PHYSICAL EXAMINATION VITAL SIGNS: Temperature 97, heart rate 75, blood pressure 146/95, respirations 20, oxygen saturation 96% on room air. GENERAL: He is awake, alert and oriented times [address] HEENT: Mucous membrane moist. NECK: Supple. LUNGS: Bilateral with decreased breath sounds. CARDIOVASCULAR: S1 and S2 present. ABDOMEN: Soft. NEUROLOGICAL: He is able to verbalize and moves all extremities. EXTREMITIES: Bilateral lower extremities with no edema. LABS: Sodium 140, potassium 4, chloride 99, CO2 30, BUN 55, creatinine 1.91, glucose 203. White blood cells 1.93, hemoglobin 9.1, hematocrit 27.3, and platelets 147,000. PT 14, PTT 26.4 and INR 1.17. IMPRESSION 1. Vkjok-tw-bevrgem diastolic congestive heart failure. 2. Coronary artery disease. 3. Hypertension. 4. Diabetes. 5. Transient ischemic attack. 6. Chronic kidney disease. 7. Obesity. 8. Right carotid stenosis. ASSESSMENT AND PLAN: He had an echocardiogram that showed low to normal systolic function, EF 50% to 55%. He got a bilateral carotid Doppler that showed 50% to 69% right carotid stenosis. Blood pressure and heart rate stable. Will go ahead and continue medical management for now. Will continue diuretics, Plavix and beta sukumar. He had a recent cardiac stress test in the office that showed no ischemia. Thank you for this consultation. DICTATED BY CELIO GARCIA NP Job#: [id number] DEBORA
[2017-11-19 09:01] LABS: ANISOCYTOSIS SLIGHT; EOSINOPHILS % (MANUAL) 1 % (0-7); LYMPHOCYTES % (MANUAL) 54 % (19-48); MONOCYTES % (MANUAL) 7 % (3.4-9.0); NEUTROPHILS % (MANUAL) 38 % (40-74); PLATELET ESTIMATE ADEQUATE; PLATELET MORPHOLOGY COMMENT NORMAL; RBC MORPHOLOGY COMMENT ABNORMAL
[2017-11-19 15:39] LABS: % IRON SATURATION 24 % (15-50); IRON 102 ug/dL (65-175); TOTAL IRON BINDING CAPACITY 424 ug/dL (261-478); TRANSFERRIN 303 mg/dL (174-364)
[2017-11-19] MEDS ORDERED: FILGRASTIM 300 MCG/ML VIAL SC NR (16:00)
[2017-11-19 16:21] LABS: FOLATE 7.8 ng/mL (7.0-15.4)
[2017-11-19] MEDS ORDERED: INSULIN DETEMIR 100 UNIT/ML PEN SQ SCH (21:00)
[2017-11-19] MEDS: SIMVASTATIN 40 MG TAB PO SCH (21:27)
[2017-11-19] MEDS: DONEPEZIL HCL 5 MG TAB PO SCH (21:27)
[2017-11-20] VITALS (7 sets, daily range): BP systolic 127–159; BP diastolic 60–74
--- NOTE | 2017-11-20 06:20 | Consultation ---
DATE OF CONSULTATION: November 19, 2017 ATTENDING DOCTOR: Dr. Callaway REASON OF CONSULTATION: Pancytopenia. HISTORY: This is a 72-year-old gentleman with a past medical history including diabetes, hypertension, hyperlipidemia, coronary artery disease, CHF, morbid obesity, left eye blindness, chronic kidney disease, CVA, anemia, and dementia. He is currently in hospital with worsening shortness of breath. He has history of coronary artery disease for the last 20 years. At the time of admission, patient had anemia, neutropenia hospital course, he had worsening neutropenia. A recent white cell count went to the 1.9, hemoglobin 9, platelet count 147,000. Coagulation profile was normal. No prior history of any blood disorder. He denies any prior history of chronic liver disease. No history of hepatitis. He has history of alcohol almost 35 years back. No night sweat or recent weight loss. PAST MEDICAL HISTORY: Diabetes, hypertension, hyperlipidemia, coronary artery disease, CHF, morbid obesity, left eye blindness, dementia, chronic kidney disease, CVA, anemia. PAST SURGICAL HISTORY: Spine surgery, left eye surgery, open heart surgery. FAMILY HISTORY: No family history of any blood disorder. SOCIAL HISTORY: Patient lives at home with family. No smoking, alcohol, or drugs. REVIEW OF SYSTEMS: Twelve-point review as per HPI. ALLERGIES: TYLENOL. MEDICATIONS: Reviewed. PHYSICAL EXAMINATION: GENERAL: Alert, awake, communicative, not in acute distress. HEENT: Normocephalic, atraumatic. Sclerae pale. Conjunctivae clear. NECK: Supple. CHEST: Clear to auscultation. CARDIOVASCULAR: Regular rate and rhythm. ABDOMEN: Soft, nontender. EXTREMITIES: No clubbing, cyanosis, edema. TREATMENT PLANT OPERATOR: Grossly intact. LABS: Reviewed. Patient has anemia with slightly elevated MCV and neutropenia and thrombocytopenia. ASSESSMENT AND PLAN: Patient with history of multiple medical conditions, currently in hospital with shortness of breath. So far workup is consistent with svlpg-qz-uwoenca diastolic congestive heart failure. Patient also had worsening anemia and pancytopenia. Anemia. Patient has anemia with slightly elevated mean corpuscular volume. Possible differential includes: 1. Anemia of chronic disease. 2. Other possibility of myelodysplastic syndrome especially associated with pancytopenia. 3. Other possibility of congestive hepatomegaly which can cause consumptive anemia and pancytopenia. RECOMMENDATION: Will do complete anemia evaluation and include myeloma panel. Will start patient on Epogen. Further recommendations as per workup. Pancytopenia. Possible differential includes myelodysplastic syndrome or other congestive hepatomegaly, which is causing consumptive pancytopenia. RECOMMENDATION: Flow cytometry of peripheral blood to look for myelodysplastic syndrome. Will also check B12 and folate level. Considering worsening neutropenia, I will give 1 dose of Neupogen. Further recommendation and treatment as per workup. Congestive heart failure. Patient is currently following property management assistant. Will monitor and follow their recommendation. Hypertension. Current blood pressure is controlled. Continue current care. Will follow patient closely. Job#: [id number]
[2017-11-20 06:56] LABS: BASOPHILS % 0.3 % (0.0-1.0); EOSINOPHILS % 0.2 % (0.0-6.0); HEMATOCRIT 28.2 % (38.2-49.6); HEMOGLOBIN 9.3 g/dL (14.0-18.0); LYMPHOCYTES % 7.2 % (18.0-39.1); MEAN CORPUSCULAR HEMOGLOBIN 31.8 pg (28-32); MEAN CORPUSCULAR VOLUME 96.6 fL (81-99); MONOCYTES # (AUTO) 0.6 (0.2-0.8); MONOCYTES % 4.4 % (4.4-11.3); NEUTROPHILS % 87.1 % (38.7-80.0); PLATELET COUNT 141 x10e3/uL (140-360); RED BLOOD COUNT 2.92 x10e6/uL (4.3-5.7); RED CELL DISTRIBUTION WIDTH 14.9 % (11.7-14.4)
[2017-11-20 07:24] LABS: ANION GAP 14.1 mmol/L (8-16); CALCIUM 9.5 mg/dL (8.4-10.2); CREATININE, SERUM 1.7 mg/dL (0.72-1.25); POTASSIUM 4.1 mmol/L (3.5-5.1)
[2017-11-20] MEDS: FAMOTIDINE 20 MG TAB PO SCH ×2 (08:15→17:30)
[2017-11-20] MEDS: INSULIN LISPRO 100 UNIT/1 ML 3ML VIAL SQ SCH ×7 (08:15→21:30)
[2017-11-20] MEDS: FUROSEMIDE INJ 10 MG/ML 4 ML VIAL IV SCH (08:36)
[2017-11-20] MEDS: CARVEDILOL 12.5 MG TAB PO SCH ×2 (08:36→17:30)
[2017-11-20] MEDS: HYDRALAZINE HCL 25 MG TAB PO SCH ×3 (08:36→21:30)
[2017-11-20] MEDS: SERTRALINE HCL 100 MG TAB PO SCH ×2 (08:37→17:30)
[2017-11-20] MEDS: CLOPIDOGREL BISULFATE 75 MG TAB PO SCH (08:37)
[2017-11-20] MEDS: AMLODIPINE BESYLATE 5 MG TAB PO SCH ×2 (08:37→17:30)
[2017-11-20] MEDS: FENOFIBRATE 145 MG TAB PO SCH (08:37)
[2017-11-20] MEDS: HEPARIN SOD (PORCINE) 5,000 UNIT/ML VIAL SC SCH ×2 (08:38→21:50)
[2017-11-20 09:21] LABS: BASOPHILS # (AUTO) 0.1 (0.0-0.1); BASOPHILS % 0.4 % (0.0-1.0); EOSINOPHILS # (AUTO) 0.1 (0.0-0.4); EOSINOPHILS % 0.3 % (0.0-6.0); HEMATOCRIT 27.8 % (38.2-49.6); HEMOGLOBIN 9.2 g/dL (14.0-18.0); LYMPHOCYTES # (AUTO) 1.1 (1.0-3.2); LYMPHOCYTES % 6.9 % (18.0-39.1); MEAN CORPUSCULAR HEMOGLOBIN 32.2 pg (28-32); MEAN CORPUSCULAR HGB CONC 33.1 g/dL (31-35); MEAN CORPUSCULAR VOLUME 97.2 fL (81-99); MONOCYTES # (AUTO) 0.7 (0.2-0.8); MONOCYTES % 4.1 % (4.4-11.3); NEUTROPHILS # (AUTO) 13.9 (2.1-6.9); NEUTROPHILS % 87.6 % (38.7-80.0); PLATELET COUNT 144 x10e3/uL (140-360); RED BLOOD COUNT 2.86 x10e6/uL (4.3-5.7); RED CELL DISTRIBUTION WIDTH 14.8 % (11.7-14.4)
[2017-11-20 11:07] LABS: HIV 1&2 AB SCREEN NON-REACTIVE (NONREACTIVE)
[2017-11-20] MEDS: FOLIC ACID 1 MG TAB PO SCH (11:30)
[2017-11-20] MEDS: CYANOCOBALAMIN INJ 1,000 MCG/ML VIAL IM SCH (11:30)
[2017-11-20] MEDS ORDERED: INSULIN DETEMIR 100 UNIT/ML PEN SQ SCH (21:00)
--- NOTE | 2017-11-20 21:14 | Progress Note ---
DATE: November 20, 2017 SUBJECTIVE: Patient seen and examined today. Patient appeared comfortable. Clinical condition is improving. PHYSICAL EXAMINATION: GENERAL: Alert, awake, communicative. HEENT: Normocephalic, atraumatic. Sclerae pink. Conjunctivae clear. NECK: Supple. CHEST: Clear to auscultation. CARDIOVASCULAR: Regular rate and rhythm. EXTREMITIES: No edema. LABS AND IMAGING: Reviewed. ASSESSMENT AND PLAN: Patient with history of congestive heart failure, diabetes, chronic kidney disease with hypertension, pancytopenia, and anemia. Workup so far showed B12 deficiency and anemia of chronic disease. Patient currently started on Procrit. Patient also received Neupogen. Current white cell count markedly improved. Clinical condition is improving. RECOMMENDATION: 1. B12 replacement treatment. 2. Continue Procrit. Will follow patient. Job#: [id number]
[2017-11-20] MEDS: DONEPEZIL HCL 5 MG TAB PO SCH (21:30)
[2017-11-20] MEDS: SIMVASTATIN 40 MG TAB PO SCH (21:30)
[2017-11-21] VITALS (7 sets, daily range): BP systolic 122–148; BP diastolic 58–70
[2017-11-21 06:10] LABS: BASOPHILS % 0.2 % (0.0-1.0); EOSINOPHILS # (AUTO) 0.1 (0.0-0.4); EOSINOPHILS % 0.5 % (0.0-6.0); HEMATOCRIT 27.4 % (38.2-49.6); HEMOGLOBIN 9.1 g/dL (14.0-18.0); LYMPHOCYTES # (AUTO) 1.1 (1.0-3.2); LYMPHOCYTES % 8.6 % (18.0-39.1); MEAN CORPUSCULAR HEMOGLOBIN 32.4 pg (28-32); MEAN CORPUSCULAR HGB CONC 33.2 g/dL (31-35); MEAN CORPUSCULAR VOLUME 97.5 fL (81-99); MONOCYTES # (AUTO) 0.6 (0.2-0.8); MONOCYTES % 4.8 % (4.4-11.3); NEUTROPHILS # (AUTO) 10.7 (2.1-6.9); NEUTROPHILS % 83.2 % (38.7-80.0); PLATELET COUNT 136 x10e3/uL (140-360); RED BLOOD COUNT 2.81 x10e6/uL (4.3-5.7); RED CELL DISTRIBUTION WIDTH 15.1 % (11.7-14.4)
[2017-11-21 06:32] LABS: ALBUMIN 3.7 g/dL (3.5-5.0); ALBUMIN/GLOBULIN RATIO 1.3 (0.8-2.0); ANION GAP 15.1 mmol/L (8-16); CALCIUM 9.2 mg/dL (8.4-10.2); CREATININE, SERUM 2.09 mg/dL (0.72-1.25); POTASSIUM 4.1 mmol/L (3.5-5.1)
[2017-11-21 06:56] LABS: THYROID STIMULATING HORMONE 4.068 uIU/mL (0.350-4.940)
[2017-11-21] MEDS: FAMOTIDINE 20 MG TAB PO SCH ×2 (07:30→16:30)
[2017-11-21] MEDS: INSULIN LISPRO 100 UNIT/1 ML 3ML VIAL SQ SCH ×7 (07:30→21:29)
[2017-11-21 07:46] LABS: BAND NEUTROPHILS % (MANUAL) 3 %; LYMPHOCYTES % (MANUAL) 9 % (19-48); METAMYELOCYTES % (MANUAL) 1 % (0-0); MONOCYTES % (MANUAL) 5 % (3.4-9.0); MYELOCYTES % (MANUAL) 1 % (0-0); NEUTROPHILS % (MANUAL) 80 % (40-74)
[2017-11-21 07:47] LABS: HYPOCHROMASIA SLIGHT; PLATELET ESTIMATE SLIGHTLY DECREASED; PLATELET MORPHOLOGY COMMENT NORMAL; RBC MORPHOLOGY COMMENT NORMAL
--- NOTE | 2017-11-21 08:54 | Progress Note ---
DATE: November 21, 2017 Patient was seen and examined today. Patient appeared comfortable. Clinical condition is stable. Hemoglobin is stable. White cell count almost normal. Platelet count is relatively stable. PHYSICAL EXAMINATION GENERAL: Alert, awake and communicative. HEENT: Normocephalic and atraumatic. Sclerae pink. Conjunctivae clear. NECK: Supple. CHEST: Decreased breath sounds at the bases. CARDIOVASCULAR: Regular rate and rhythm. ABDOMEN: Soft. EXTREMITIES: No edema. LABS AND IMAGING: Reviewed. ASSESSMENT AND PLAN: Patient with a history of multiple medical conditions, including diabetes, hypertension, hyperlipidemia, coronary artery disease, congestive heart failure, currently in the hospital with sstmz-sk-tencbqh congestive heart failure. Patient also has anemia of chronic disease and pancytopenia. Workup so far shows B12 deficiency. Patient continues on B12 replacement treatment. Patient also requires Neupogen treatment. He is on Procrit/Epogen treatment. Clinical condition is improving. At this point, continue current treatment. Will monitor the patient's blood count very closely. Will continue B12 injections for 7 extra days, and will change to weekly B12 replacement treatment. Will follow the patient. Job#: [id number] DEBORA
[2017-11-21] MEDS: HYDRALAZINE HCL 25 MG TAB PO SCH ×3 (09:00→21:22)
[2017-11-21] MEDS: FENOFIBRATE 145 MG TAB PO SCH (09:00)
[2017-11-21] MEDS: FUROSEMIDE INJ 10 MG/ML 4 ML VIAL IV SCH (09:00)
[2017-11-21] MEDS: CLOPIDOGREL BISULFATE 75 MG TAB PO SCH (09:00)
[2017-11-21] MEDS: AMLODIPINE BESYLATE 5 MG TAB PO SCH ×2 (09:00→17:00)
[2017-11-21] MEDS: SERTRALINE HCL 100 MG TAB PO SCH ×2 (09:00→17:00)
[2017-11-21] MEDS: CARVEDILOL 12.5 MG TAB PO SCH ×2 (09:00→17:00)
[2017-11-21] MEDS: FOLIC ACID 1 MG TAB PO SCH (09:00)
[2017-11-21] MEDS: CYANOCOBALAMIN INJ 1,000 MCG/ML VIAL IM SCH (10:36)
[2017-11-21] MEDS: HEPARIN SOD (PORCINE) 5,000 UNIT/ML VIAL SC SCH ×2 (10:41→21:28)
[2017-11-21] MEDS ORDERED: EPOETIN ALFA 10000 UNIT/ML VIAL SC SCH (17:00)
[2017-11-21] MEDS ORDERED: INSULIN DETEMIR 100 UNIT/ML PEN SQ SCH (21:00)
[2017-11-21] MEDS: SIMVASTATIN 40 MG TAB PO SCH (21:23)
[2017-11-21] MEDS: DONEPEZIL HCL 5 MG TAB PO SCH (21:23)
[2017-11-22 04:58] VITALS: BP 120/62
[2017-11-22 06:36] LABS: BASOPHILS % 0.6 % (0.0-1.0); EOSINOPHILS # (AUTO) 0.1 (0.0-0.4); EOSINOPHILS % 0.9 % (0.0-6.0); HEMATOCRIT 27.8 % (38.2-49.6); HEMOGLOBIN 9.1 g/dL (14.0-18.0); LYMPHOCYTES % 15.7 % (18.0-39.1); MEAN CORPUSCULAR HEMOGLOBIN 32.3 pg (28-32); MEAN CORPUSCULAR HGB CONC 32.7 g/dL (31-35); MEAN CORPUSCULAR VOLUME 98.6 fL (81-99); MONOCYTES # (AUTO) 0.5 (0.2-0.8); MONOCYTES % 6.9 % (4.4-11.3); NEUTROPHILS # (AUTO) 4.7 (2.1-6.9); NEUTROPHILS % 70.6 % (38.7-80.0); PLATELET COUNT 123 x10e3/uL (140-360); RED BLOOD COUNT 2.82 x10e6/uL (4.3-5.7)
[2017-11-22 06:52] LABS: ALBUMIN 3.8 g/dL (3.5-5.0); ALBUMIN/GLOBULIN RATIO 1.4 (0.8-2.0); ANION GAP 11.5 mmol/L (8-16); CALCIUM 9.1 mg/dL (8.4-10.2); CREATININE, SERUM 1.78 mg/dL (0.72-1.25); POTASSIUM 4.5 mmol/L (3.5-5.1)
[2017-11-22 08:03] VITALS: BP 177/70
[2017-11-22] MEDS: FAMOTIDINE 20 MG TAB PO SCH (08:42)
[2017-11-22] MEDS: CLOPIDOGREL BISULFATE 75 MG TAB PO SCH (08:43)
[2017-11-22] MEDS: FUROSEMIDE INJ 10 MG/ML 4 ML VIAL IV SCH (08:43)
[2017-11-22] MEDS: FENOFIBRATE 145 MG TAB PO SCH (08:43)
[2017-11-22] MEDS: FOLIC ACID 1 MG TAB PO SCH (08:43)
[2017-11-22] MEDS: SERTRALINE HCL 100 MG TAB PO SCH (08:43)
[2017-11-22] MEDS: CYANOCOBALAMIN INJ 1,000 MCG/ML VIAL IM SCH (08:43)
[2017-11-22] MEDS: CARVEDILOL 12.5 MG TAB PO SCH (08:43)
[2017-11-22] MEDS: HYDRALAZINE HCL 25 MG TAB PO SCH (08:43)
[2017-11-22] MEDS: HEPARIN SOD (PORCINE) 5,000 UNIT/ML VIAL SC SCH (08:44)
--- NOTE | 2017-11-22 08:51 | Progress Note ---
DATE: November 22, 2017 Patient was seen and examined today. Patient appeared comfortable. Clinically doing better. Hemoglobin is stable. Currently on B12 replacement treatment. PHYSICAL EXAMINATION GENERAL: Alert, awake and communicative. HEENT: Normocephalic and atraumatic. Sclerae pink. Conjunctivae clear. NECK: Supple. CHEST: Decreased breath sounds at the bases. CARDIOVASCULAR: Regular rate and rhythm. EXTREMITIES: No edema. LABS AND IMAGING: Reviewed. ASSESSMENT AND PLAN: Patient with history of multiple medical conditions. I am currently following for anemia and pancytopenia. So far, workup shows B12 deficiency. The patient is currently on B12 replacement treatment. Flow cytometry peripheral blood is pending. Clinical condition is stable. Recommendations are to continue to replace B12. We will follow flow cytometry. We will monitor the patient closely. Job#: [id number]
[2017-11-22] MEDS: AMLODIPINE BESYLATE 5 MG TAB PO SCH (08:54)
[2017-11-22] MEDS: INSULIN LISPRO 100 UNIT/1 ML 3ML VIAL SQ SCH ×4 (09:01→12:10)
[2017-11-22 12:31] VITALS: BP 140/65
[2017-11-22] MEDS ORDERED: LEVEMIR100 UNIT/1 SC (13:08)
[2017-11-22] MEDS ORDERED: ZOCOR40 MG PO (13:08)
[2017-11-22] MEDS ORDERED: LASIX40 MG PO (13:10)
[2017-11-22] MEDS ORDERED: B-121000 MCG IM (13:29)
== END 2017-11-22 14:17 | disposition home health service (06) | DRG 291 ==
LOC: ER 14:33 → ERHOLD 18:53 → MED/SURG 19:21
PROVIDERS: ADMIT Internal Medicine; ATTEND Internal Medicine
DX: I13.0 Hypertensive heart and chronic kidney disease with heart failure and stage 1 through stage 4 chronic kidney disease, or unspecified chronic kidney disease (principal); I50.33 Acute on chronic diastolic (congestive) heart failure; G45.9 Transient cerebral ischemic attack, unspecified; N17.9 Acute kidney failure, unspecified; Z68.42 Body mass index [BMI] 45.0-49.9, adult; D61.818 Other pancytopenia; N18.3 Chronic kidney disease, stage 3 (moderate); Z79.4 Long term (current) use of insulin; F03.90 Unspecified dementia, unspecified severity, without behavioral disturbance, psychotic disturbance, mood disturbance, and anxiety; E11.22 Type 2 diabetes mellitus with diabetic chronic kidney disease; E78.5 Hyperlipidemia, unspecified; E66.01 Morbid (severe) obesity due to excess calories; H54.62 Unqualified visual loss, left eye, normal vision right eye; I65.21 Occlusion and stenosis of right carotid artery; E53.8 Deficiency of other specified B group vitamins; D63.8 Anemia in other chronic diseases classified elsewhere; I25.10 Atherosclerotic heart disease of native coronary artery without angina pectoris; Z95.1 Presence of aortocoronary bypass graft; D63.1 Anemia in chronic kidney disease; Z86.73 Personal history of transient ischemic attack (TIA), and cerebral infarction without residual deficits
CPT/HCPCS: 36415; 70450; 71045; 76770; 80048; 80053; 80061; 81001; 82232; 82270; 82550; 82553; 82570; 82607; 82668; 82746; 82948; 83036; 83540; 83721; 83880; 84156; 84165; 84443; 84466; 84484; 85025; 85610; 85730; 86803; 87086; 87390; 88184; 92523; 93005; 93306; 93880; 96372; 97139; 99284; G0433; G0435; J1442; J1644; J1940; J2405; J3420; Q4081

== ENCOUNTER 2017-11-24 20:49 | Emergency (ER) | payer MEDICARE ==
[~2017-11-24] VITALS: Ht 157.5 cm; Wt 122.0 kg
[~2017-11-24 20:49] MED LIST: AMLODIPINE BESYL5 MG PO; ARICEPT5 MG PO; B-121000 MCG IM; BUMETANIDE1 MG PO; CARVEDILOL12.5 MG PO; HUMALOG100 UNIT/1 SC; HYDRALAZINE HCL25 MG PO; LASIX40 MG PO; LEVEMIR100 UNIT/1 SC; LISINOPRIL10 MG PO; LOVASTATIN40 MG PO; MELOXICAM7.5 MG PO; METOLAZONE5 MG PO; METOPROLOL TART50 MG PO; PLAVIX75 MG PO; SERTRALINE HCL100 MG PO; TOUJEO SC; TRICOR145 MG PO; ZOCOR40 MG PO
[2017-11-24 22:42] LABS: BASOPHILS % 0.7 % (0.0-1.0); EOSINOPHILS % 0.7 % (0.0-6.0); HEMATOCRIT 30.3 % (38.2-49.6); HEMOGLOBIN 9.9 g/dL (14.0-18.0); LYMPHOCYTES # (AUTO) 0.9 (1.0-3.2); LYMPHOCYTES % 20.5 % (18.0-39.1); MEAN CORPUSCULAR HEMOGLOBIN 32.2 pg (28-32); MEAN CORPUSCULAR HGB CONC 32.7 g/dL (31-35); MEAN CORPUSCULAR VOLUME 98.7 fL (81-99); MONOCYTES # (AUTO) 0.5 (0.2-0.8); MONOCYTES % 10.8 % (4.4-11.3); NEUTROPHILS # (AUTO) 2.5 (2.1-6.9); NEUTROPHILS % 55.2 % (38.7-80.0); PLATELET COUNT 119 x10e3/uL (140-360); RED BLOOD COUNT 3.07 x10e6/uL (4.3-5.7); RED CELL DISTRIBUTION WIDTH 15.1 % (11.7-14.4)
[2017-11-24] MEDS ORDERED: ASPIRIN 81 MG CHEW TAB PO ONE (22:45)
[2017-11-24 22:57] LABS: ALBUMIN 4.1 g/dL (3.5-5.0); ALBUMIN/GLOBULIN RATIO 1.2 (0.8-2.0); ANION GAP 17.5 mmol/L (8-16); CALCIUM 9.8 mg/dL (8.4-10.2); CREATININE, SERUM 2.39 mg/dL (0.72-1.25); POTASSIUM 4.5 mmol/L (3.5-5.1)
[2017-11-24 23:03] LABS: CREATINE KINASE MB 1.1 ng/mL (0-5.0)
[2017-11-24 23:56] LABS: BILIRUBIN,URINE NEGATIVE (NEGATIVE); CLARITY,URINE CLEAR (CLEAR); COLOR,URINE YELLOW (YELLOW); KETONES,URINE NEGATIVE (NEGATIVE); LEUKOCYTE ESTERASE ,URINE NEGATIVE (NEGATIVE); NITRITE,URINE NEGATIVE (NEGATIVE); PROTEIN,URINE DIPSTICK NEGATIVE (NEGATIVE); URINE UROBILINOGEN 0.2 mg/dL (0.2 - 1)
[2017-11-24 23:59] LABS: BACTERIA,URINE RARE /HPF; EPITHELIAL CELLS,URINE FEW /LPF; RBC,URINE 0-5 /HPF (0-5); WBC,URINE (MAN) 0-5 /HPF (0-5)
--- NOTE | 2017-11-25 01:50 | Diagnostic Imaging Report ---
EXAMINATION: Head CT without contrast. HISTORY:Left side arm numbness. COMPARISON:CT brain from 11/16/2017. TECHNIQUE: Multidetector axial images were obtained from the foramen magnum to the vertex without contrast. The images were reconstructed using brain and bone algorithms. Thin section brain images were reformatted into coronal and sagittal planes. Intravenous contrast: None IMAGE QUALITY: Acceptable. FINDINGS: Skull/scalp: Expected postoperative changes from prior suboccipital craniectomy. Parenchyma: Unchanged old vascular insult in left subinsular region. No acute hemorrhage, mass or acute major vascular territorial infarct. Arteries: Atherosclerotic calcification in bilateral carotid siphon and V4 segment of the vertebral arteries. Dural sinuses: No abnormal density suggestive of thrombosis. Ventricles: No hydrocephalus or displacement. Extra-axial spaces: No abnormal density. Brain volume: Generalized age-related cerebral volume loss. Craniocervical junction: No mass, Chiari malformation, or basilar invagination. Sella: No mass. Paranasal/mastoid sinuses: Imaged portions unremarkable. Incidental finding: Left eye phthisis bulbi. IMPRESSION: No acute intracranial abnormality. No change since CT brain from 11/16/2017. Chronic findings: 1. Old vascular insult in left subinsular region. 2. Generalized age-related cerebral volume loss. 3. Expected postoperative changes from prior midline suboccipital craniectomy. Signed by: Dr. Christie Diana M.D. on 11/25/2017 1:47 AM
[2017-11-25 03:16] VITALS: BP 127/59
== END 2017-11-25 03:28 | disposition home or self-care (01) ==
LOC: ER 20:49
DX: R20.2 Paresthesia of skin (principal); E11.40 Type 2 diabetes mellitus with diabetic neuropathy, unspecified
CPT/HCPCS: 36415; 70450; 80053; 81001; 82550; 82553; 84484; 85025; 93005; 99284